=== PATIENT | male | born 1950 | race African-American/Black ===

== ENCOUNTER 2023-07-22 01:52 | Emergency (ER) | payer MEDICARE, OTHER ==
[~2023-07-22] VITALS: Ht 182.9 cm; Wt 102.0 kg
[2023-07-22 03:16] LABS: BASOPHILS % 0.5 % (0.0-2.0); EOSINOPHILS % 1.4 % (0.0-5.0); HEMATOCRIT. 41.3 % (42.0-52.0); HEMOGLOBIN. 14.2 g/dL (14.0-18.0); LYMPHOCYTES % 15.6 % (20.0-50.0); MEAN CORPUSCULAR HEMOGLOBIN 34.2 pg (28.0-32.0); MEAN CORPUSCULAR HGB CONC 34.4 g/dL (31.0-37.0); MEAN CORPUSCULAR VOLUME 99.4 fL (80.0-94.0); MEAN PLATELET VOLUME 8.4 fl (7.4-10.4); MONOCYTES % 5.8 % (2.0-8.0); NEUTROPHILS % 76.7 % (40.0-76.0); PLATELET 186 x1000/uL (130-400); RED BLOOD CELL COUNT 4.16 mill/uL (4.7-6.1); RED CELL DISTRIBUTION WIDTH 15.6 % (11.6-14.6); WHITE BLOOD COUNT 9.8 x1000/uL (4.5-11.0)
[2023-07-22 03:24] LABS: CHLORIDE 104 mEq/L (98-107); INDEX HEMOLYSI 1 (1-3); INDEX ICTERIC 1 (1-4); INDEX LIPEMIC 1 (1-3); POTASSIUM 4.2 mEq/L (3.5-5.1); SODIUM 138 mEq/L (136-145)
[2023-07-22 03:30] LABS: CLARITY URINE CLEAR (CLEAR); COLOR URINE YELLOW (YELLOW); GLUCOSE URINE 3+ (NEGATIVE); KETONES URINE NEGATIVE (NEGATIVE); LEUKOCYTE ESTERASE URINE NEGATIVE (NEGATIVE); NITRITE URINE NEGATIVE (NEGATIVE); OCCULT BLOOD URINE NEGATIVE (NEGATIVE); PH URINE 6.5 (4.5-8.0); PROTEIN URINE TRACE (NEGATIVE); SPECIFIC GRAVITY URINE 1.021 (1.005-1.030); UROBILINOGEN URINE 0.2 E.U./dL (0.2-1.0)
[2023-07-22 03:33] LABS: BACTERIA URINE NONE SEEN; SQUAMOUS EPITHELIAL CELL URINE NONE SEEN /lpf (RARE/1+); YEAST URINE NONE SEEN
[2023-07-22 03:38] LABS: ACETAMINOPHEN <2 ug/mL ug/mL (10-30); ALANINE AMINOTRANSFERASE 42 IU/L (13-61); ALBUMIN 4.2 g/dL (3.4-5.0); ASPARTATE AMINOTRANSFERASE 24 IU/L (15-37); BILIRUBIN TOTAL 0.5 mg/dL (0.1-1.0); CALCIUM 10.2 mg/dL (8.5-10.1); CARBON DIOXIDE 25 mEq/L (21-32); ETHANOL BLOOD < 10 mg/dL (-10); GLUCOSE 196 mg/dL (70-105); NT PRO B-TYPE NATRIURETIC PEP 183 pg/mL (5-125); PROTEIN TOTAL 8.5 g/dL (6.0-8.3); UREA NITROGEN BLOOD 23 mg/dL (7-21)
[2023-07-22 03:47] LABS: *AMPHETAMINES SCREEN URINE NEGATIVE (NEGATIVE); *BARBITURATES SCREEN URINE NEGATIVE (NEGATIVE); *BENZODIAZEPINES SCREEN URINE NEGATIVE (NEGATIVE); *COCAINE SCREEN URINE NEGATIVE (NEGATIVE); CANNABINOID URINE SCREEN NEGATIVE (NEGATIVE); ECSTASY MDMA SCREEN URINE CONF.TEST INDICATED (NEGATIVE); METHADONE URINE SCREEN NEGATIVE (NEGATIVE); OPIATES URINE SCREEN NEGATIVE (NEGATIVE); PHENCYCLIDINE URINE SCREEN NEGATIVE (NEGATIVE)
[2023-07-22 04:01] LABS: LACTIC ACID 4.7 mmol/L (0.4-2.0)
[2023-07-22 04:08] LABS: TROPONIN I HIGH SENSITIVITY 10 ng/L (<78)
[2023-07-22] MEDS ORDERED: SODIUM CHLORIDE 0.9% 1,000 ML IV ONE (04:15)
[2023-07-22 05:26] LABS: RBC URINE 0-2 /hpf (0-2); WBC URINE 0-2 /hpf (0-2)
[2023-07-22 05:32] LABS: INDEX HEMOLYSI 2 (1-3)
[2023-07-22 05:35] LABS: AMMONIA 45 uMol/L (<32)
[2023-07-22 07:35] VITALS: O2SAT 98
[2023-07-22] MEDS ORDERED: ZOLPIDEM TARTRATE 5MG TABLET PO PRN (10:45)
[2023-07-22] MEDS ORDERED: DOCUSATE SODIUM 100MG CAPSULE PO PRN (10:45)
[2023-07-22] MEDS ORDERED: CLONIDINE 0.1MG TABLET PO PRN (10:45)
[2023-07-22] MEDS ORDERED: MAGNESIUM/ALUMINUM HYDROXIDE/SIMETHICONE 30ML UDC PO PRN (10:45)
[2023-07-22] MEDS ORDERED: LORAZEPAM 2MG/ML CPJ IV PRN ×2 (10:45→15:00)
[2023-07-22] MEDS ORDERED: ONDANSETRON HCL 4MG/2ML INJ IV PRN (10:45)
[2023-07-22] MEDS ORDERED: ACETAMINOPHEN 325MG TABLET PO PRN ×2 (10:45)
[2023-07-22] MEDS ORDERED: GUAIFENESIN 200MG/10ML SUGAR FREE UDC PO PRN (10:45)
[2023-07-22] MEDS ORDERED: SODIUM CHLORIDE 0.9% 1,000 ML IV SCH (11:00)
[2023-07-22] MEDS ORDERED: VANCOMYCIN 1.5GM/250ML IVPB 250 ML IV SCH (11:00)
[2023-07-22] MEDS ORDERED: ENOXAPARIN 40MG/0.4ML SYR SUBCUT SCH (11:00)
[2023-07-22] MEDS ORDERED: PIPERACILLIN/TAZ 3.375G PREMIX 50 ML IV SCH ×2 (11:00→17:00)
[2023-07-22] MEDS ORDERED: LACTULOSE 20G/30ML UDC PO NR (13:30)
[2023-07-22] MEDS ORDERED: AMLODIPINE 5MG TABLET PO SCH (13:30)
[2023-07-22 14:09] LABS: CREATINE KINASE MB FRACTION 1.9 ng/mL (0.5-3.6); T4 FREE 1.19 ng/dL (0.76-1.46); THYROID STIMULATING HORMONE 1.2 uIU/mL (0.36-3.74)
[2023-07-22 14:21] LABS: INR 1.2; PROTHROMBIN TIME 13.1 sec (9.6-11.0)
[2023-07-22] MEDS ORDERED: DEXTROSE 50% WATER 50ML SYRINGE IV PRN (14:30)
[2023-07-22 14:40] LABS: LACTIC ACID 2.4 mmol/L (0.4-2.0)
[2023-07-22 14:56] LABS: AMMONIA 26 uMol/L (<32)
[2023-07-22] MEDS ORDERED: PANTOPRAZOLE SODIUM 40 MG/VIAL IV SCH ×2 (15:00→20:15)
[2023-07-22] MEDS ORDERED: VANCOMYCIN 1.5GM/250ML IVPB 250 ML IV NR (15:00)
[2023-07-22] MEDS ORDERED: LABETALOL 5MG/ML SYR 20 MG/4 ML SYRINGE IV PRN ×2 (16:30→16:45)
[2023-07-22] MEDS ORDERED: HYDRALAZINE 20MG/ML VIAL IV PRN (16:45)
[2023-07-22] MEDS ORDERED: BLOOD SUGAR DIAGNOSTIC STRIP TEST SCH (17:00)
[2023-07-22] MEDS ORDERED: NICARDIPINE 100 MG in SODIUM CHLORIDE 0.9% 60 ML IV PRN (17:00)
[2023-07-22] MEDS ORDERED: NICARDIPINE 40 MG/200 ML PREMIX 200 ML IV PRN (17:15)
[2023-07-22] MEDS ORDERED: INSULIN LISPRO 100 UNITS/ML SUBCUT SCH (18:20)
[2023-07-22] MEDS ORDERED: PIPERACILLIN/TAZ 3.375G PREMIX 50 ML IV NR (20:30)
[2023-07-22] MEDS ORDERED: METOPROLOL TARTRATE 25MG TABLET PO SCH (21:00)
[2023-07-22] MEDS ORDERED: ATORVASTATIN CALCIUM 10MG TABLET PO SCH (21:00)
[2023-07-22 21:02] VITALS: BP 117/62; PULSE 74; RESP 13; TEMP 98.5
[2023-07-23] MEDS ORDERED: PIPERACILLIN/TAZOBACTAM 3.375G in DEXT 5% WATER 50ML IV SCH (06:00)
[2023-07-23] MEDS ORDERED: VANCOMYCIN 1G PREMIX 200 ML IV SCH (06:00)
[2023-07-23] MEDS ORDERED: AMLODIPINE 10MG TABLET PO SCH (09:00)
[2023-07-23] MEDS ORDERED: CLOPIDOGREL 75MG TABLET PO SCH (09:00)
== END 2023-07-22 21:40 | disposition short-term general hospital (02) ==
LOC: ER 01:58 → EDBEDREQSVC 18:19 → ER 21:40
DX: R41.82 Altered mental status, unspecified (principal); I10 Essential (primary) hypertension; E11.9 Type 2 diabetes mellitus without complications; Z86.73 Personal history of transient ischemic attack (TIA), and cerebral infarction without residual deficits
CPT/HCPCS: 80061; 80053; 80305; 81003; 80307; 80329; 80320; 82140; 82550; 82553; 82962; 83036; 83880; 84439; 83605; 83690; 84443; 85025; 85379; 85610; 87040; 84484; 36415; 84145; 71045; 71275; 70496; 70498; 70450; 93970; 99291; J3370; J1650; J0360; J2543; G0480

== ENCOUNTER 2023-09-08 23:50 | Emergency (ER) | payer MEDICARE, OTHER ==
[~2023-09-08] VITALS: Ht 182.9 cm; Wt 102.0 kg
[2023-09-08 23:53] VITALS: O2SAT 98
[2023-09-09] MEDS ORDERED: LEVETIRACETAM 1000MG PREMIX 100 ML IV ONE (01:00)
[2023-09-09 01:09] LABS: BASOPHILS % 0.7 % (0.0-2.0); EOSINOPHILS % 1.1 % (0.0-5.0); HEMATOCRIT. 42.8 % (42.0-52.0); HEMOGLOBIN. 14.4 g/dL (14.0-18.0); LYMPHOCYTES % 26.7 % (20.0-50.0); MEAN CORPUSCULAR HEMOGLOBIN 33.1 pg (28.0-32.0); MEAN CORPUSCULAR HGB CONC 33.7 g/dL (31.0-37.0); MEAN CORPUSCULAR VOLUME 98.4 fL (80.0-94.0); MONOCYTES % 8.1 % (2.0-8.0); NEUTROPHILS % 63.4 % (40.0-76.0); RED BLOOD CELL COUNT 4.35 mill/uL (4.7-6.1)
[2023-09-09 01:21] LABS: CHLORIDE 102 mEq/L (98-107); INDEX HEMOLYSI 1 (1-3); INDEX ICTERIC 1 (1-4); INDEX LIPEMIC 1 (1-3); POTASSIUM 4.2 mEq/L (3.5-5.1); SODIUM 136 mEq/L (136-145)
[2023-09-09 01:33] LABS: DIFFERENTIAL COMMENT 1
[2023-09-09 01:39] LABS: ALANINE AMINOTRANSFERASE 34 IU/L (13-61); ALBUMIN 4.5 g/dL (3.4-5.0); ASPARTATE AMINOTRANSFERASE 24 IU/L (15-37); BILIRUBIN TOTAL 0.6 mg/dL (0.1-1.0); CALCIUM 10.4 mg/dL (8.5-10.1); CARBON DIOXIDE 28 mEq/L (21-32); CREATININE 1.1 mg/dL (0.6-1.3); GLUCOSE 141 mg/dL (70-105); PROTEIN TOTAL 9.4 g/dL (6.0-8.3); UREA NITROGEN BLOOD 16 mg/dL (7-21)
[2023-09-09 02:43] LABS: MEAN PLATELET VOLUME 8.8 fl (7.4-10.4); PLATELET 261 x1000/uL (130-400)
[2023-09-09] MEDS ORDERED: KEPP500 MT (05:06)
[2023-09-09 09:58] VITALS: BP 122/72; PULSE 70; RESP 15; TEMP 98.3
== END 2023-09-09 10:02 | disposition home or self-care (01) ==
LOC: ER 23:50
DX: R56.9 Unspecified convulsions (principal); E11.9 Type 2 diabetes mellitus without complications; I10 Essential (primary) hypertension; Z86.73 Personal history of transient ischemic attack (TIA), and cerebral infarction without residual deficits
CPT/HCPCS: 99285; 82962; 96374; 70450; 71045; 80053; 85025; 36415; J1953